=== PATIENT | male | born 1945 | race Caucasian/White ===

== ENCOUNTER → 2023-08-28 | Outpatient (CLI) | payer OTHER | END | disposition home or self-care (01) | LOC: RAD 14:32 | PROVIDERS: ATTEND Nurse Practitioner | DX: S32.010A Wedge compression fracture of first lumbar vertebra, initial encounter for closed fracture (principal); I70.0 Atherosclerosis of aorta; Z00.00 Encounter for general adult medical examination without abnormal findings; X58.XXXA Exposure to other specified factors, initial encounter; Y93.89 Activity, other specified; Y92.89 Other specified places as the place of occurrence of the external cause; Y99.8 Other external cause status | CPT/HCPCS: 71046 ==